=== PATIENT | female | born 1965 | race Caucasian/White ===

== ENCOUNTER 2020-01-04 10:59 | Outpatient (CLI) | payer OTHER ==
[~2020-01-04 10:59] MED LIST: ADVAIR IN; ALDACTONE25 MG PO; BACLOFEN20 MG PO; BENTYL10 MG/ML IM; CALAN SR 120MG120 MG PO; CLONAZEPAM2 MG PO; Cipro PO; DETROL LA4 MG PO; DEXLANT PO; FENTAN; FLEXERIL PO; NEURON PO; OXYC1TAB9 PO; PLAVIX75 MG PO; PNEU16DI2; PRAVAC PO; PROVENTIL S1 ML/5 MG IH; REGLAN PO; SINGULAIR10 MG PO; SPIRIVA RESPIMAT4 G1 IH; THEOPHYLLINE400 MG PO; XARELTO20 MG PO; ZANTAC300 MG PO
== END 2020-01-04 11:24 | disposition home or self-care (01) ==
LOC: NUCLEAR 10:59
PROVIDERS: ATTEND Internal Medicine Pulmonary Disease
DX: I26.99 Other pulmonary embolism without acute cor pulmonale (principal)
CPT/HCPCS: 78580; A9540

== ENCOUNTER 2020-09-08 08:50 | Day surgery (SDC) | payer OTHER | END 2020-09-08 14:00 | disposition home or self-care (01) | LOC: AMB-ENDOS 08:50 | PROVIDERS: ATTEND Colon & Rectal Surgery | DX: D12.2 Benign neoplasm of ascending colon (principal); K64.2 Third degree hemorrhoids; Z20.822 Contact with and (suspected) exposure to COVID-19 ==

== ENCOUNTER 2022-06-27 07:21 | Outpatient (CLI) | payer OTHER | END 2022-06-27 07:33 | disposition home or self-care (01) | LOC: RX STUDY 07:21 | DX: R13.12 Dysphagia, oropharyngeal phase (principal); R10.13 Epigastric pain ==

== ENCOUNTER 2025-01-19 07:18 | Outpatient (CLI) | payer OTHER | END 2025-01-19 07:19 | disposition home or self-care (01) | LOC: NUCLEAR 07:18 | DX: R11.2 Nausea with vomiting, unspecified (principal) | CPT/HCPCS: 78264; A9541 ==